=== PATIENT | female | born 1955 | race African-American/Black ===

== ENCOUNTER 2017-05-20 08:24 | Emergency (ER) | payer OTHER ==
[~2017-05-20] VITALS: Ht 170.2 cm; Wt 78.9 kg
[~2017-05-20 08:24] MED LIST: FERR325E14 PO; FURO-572 PO; ISOS10TA9 PO; METO25TA PO; OXYC40TE66 PO
[2017-05-20 08:37] VITALS: BP 95/54
--- NOTE | 2017-05-20 08:43 | NUR ---
PATIENT AMBULATED TO BED4
--- NOTE | 2017-05-20 08:50 | NUR ---
PATIENT PRESENTS TO ED WITH C/O RIGHT HIP PAIN S/P FALL YESTERDAY; PT STATES SHE LIFTED A BOX AND SCIATICA IS ACTING UP, ALSO C/O BLE EDEMA AND PAIN. HX HTN, DM . AAOX4, AMBULATE WITH WALKER; LUNGS CLEAR BL; HR EVEN AND REGULAR; PT DENIES ANY FEVER, CP, SOB, OR COUGH AT THIS TIME; DENIES N/V/D; SKIN IS PINK/WARM/DRY; PATIENT STATES PAIN OF 10/10 AT THIS TIME; TOOK OXYCODONE AT HOME FOR PAIN, VSS; PATIENT POSITIONED FOR COMFORT; HOB ELEVATED; BEDRAILS UP X2; BED DOWN. ER MD MADE AWARE OF PT STATUS.
[2017-05-20] MEDS: HYDROmorphone 1 MG/ML AMP IM ONE (09:15)
[2017-05-20 10:10] VITALS: BP 152/89
--- NOTE | 2017-05-20 10:10 | NUR ---
Patient discharged with v/s stable. Written and verbal after care instructions given and explained. Patient alert, oriented and verbalized understanding of instructions. Ambulatory with steady gait. All questions addressed prior to discharge. ID band removed. Patient advised to follow up with PMD. Rx of FIORICET given. Patient educated on indication of medication including possible reaction and side effects. Opportunity to ask questions provided and answered.
== END 2017-05-20 10:10 | disposition home or self-care (01) ==
LOC: MED 08:24
DX: M54.30 Sciatica, unspecified side (principal); E11.9 Type 2 diabetes mellitus without complications; I10 Essential (primary) hypertension; Z79.899 Other long term (current) drug therapy; Z88.8 Allergy status to other drugs, medicaments and biological substances
CPT/HCPCS: 96372; 99283; J1170

== ENCOUNTER 2017-09-08 09:48 | Emergency (ER) | payer OTHER ==
[~2017-09-08] VITALS: Ht 170.2 cm; Wt 81.6 kg
[2017-09-08 10:00] VITALS: BP 148/82
--- NOTE | 2017-09-08 10:05 | NUR ---
PT AMBULATES TO BED 7
--- NOTE | 2017-09-08 10:15 | NUR ---
62 yo f bib self w/ c/o leg pain related to sciatica. The pain is exacerbated x 1 day (beginning yesterday morning) over her entire right side of the body. Pt denies any numbness/tingling. Denies n/v/d/fever/chills. Pt a&o x 4. GCS 15. CMS intact. RR even and unlabored. lungs bilaterally clear. ER MD Garcia notified. pt needs met. safety precautions in place .will continue to monitor. Hx: Neuropathy, HTN, Anemia, DM, RA, sciatica, 5 broken vertebrae
--- NOTE | 2017-09-08 10:16 | NUR ---
DR LYONS EVALUATING AT BEDSIDE
[2017-09-08] MEDS ORDERED: KETOROLAC 30 MG/ML VIAL IM ONE (10:20)
[2017-09-08 11:03] VITALS: BP 148/82
--- NOTE | 2017-09-08 11:03 | NUR ---
Patient discharged with v/s stable. Written and verbal after care instructions given and explained. Patient verbalized understanding. Ambulatory with steady gait. All questions addressed prior to discharge. Advised to follow up with PMD.
== END 2017-09-08 11:03 | disposition home or self-care (01) ==
LOC: MED 09:48
DX: M54.41 Lumbago with sciatica, right side (principal); G89.29 Other chronic pain; G62.9 Polyneuropathy, unspecified; E11.9 Type 2 diabetes mellitus without complications; I10 Essential (primary) hypertension; Z79.899 Other long term (current) drug therapy; Z88.8 Allergy status to other drugs, medicaments and biological substances
CPT/HCPCS: 96372; 99283; J1885

== ENCOUNTER 2017-09-15 16:17 | Emergency (ER) | payer OTHER ==
[~2017-09-15] VITALS: Ht 170.2 cm; Wt 84.8 kg
[2017-09-15 16:23] VITALS: BP 106/59
[2017-09-15] MEDS ORDERED: diphenhydrAMINE 50 MG/ML VIAL IM ONE (20:15)
[2017-09-15] MEDS ORDERED: MORPHINE SULFATE 4 MG/ML SYR IM ONE (20:15)
[2017-09-15 20:51] VITALS: BP 136/84
== END 2017-09-15 20:51 | disposition home or self-care (01) ==
LOC: MED 16:17
DX: M25.551 Pain in right hip (principal); M54.5 Low back pain; M79.89 Other specified soft tissue disorders
CPT/HCPCS: 72100; 73502; 82948; 93971; 96372; 99284; J1200; J2270; Q0092

== ENCOUNTER 2017-10-31 12:27 | Emergency (ER) | payer OTHER ==
[~2017-10-31] VITALS: Ht 170.2 cm; Wt 81.6 kg
--- NOTE | 2017-10-31 12:36 | NUR ---
pt ambulated to er bed 11
[2017-10-31 12:38] VITALS: BP 142/67
--- NOTE | 2017-10-31 12:38 | NUR ---
c/o left ankle pain x 5 days---pitting edema left tib/fib ;+2 pedal pulse <3 sec cap refill denies injury, ambulatory with slow steady gait adds chronic knee and ankle pain--- right knee pain exacerbated 2 days ago---. DENIES N/V/D; SKIN IS WARM/DRY; AAOX4 WITH EVEN AND SLOW STEADY GAIT; LUNGS CLEAR BL; HR EVEN AND REGULAR; PT DENIES ANY FEVER, CP, SOB, OR COUGH AT THIS TIME; PATIENT STATES PAIN OF 10/10 AT THIS TIME; VSS; PATIENT POSITIONED FOR COMFORT; HOB ELEVATED; BEDRAILS UP X2; BED DOWN. ER MD MADE AWARE OF PT STATUS.
[2017-10-31] MEDS ORDERED: MORPHINE SULFATE 2 MG/ML SYR IM ONE (12:50)
[2017-10-31] MEDS ORDERED: DEXAMETHASONE 10 MG/ML VIAL IM ONE (12:50)
[2017-10-31 13:54] VITALS: BP 140/62
--- NOTE | 2017-10-31 13:54 | NUR ---
Patient discharged with v/s stable. Written and verbal after care instructions given and explained. Patient alert, oriented and verbalized understanding of instructions. Ambulatory with steady gait. All questions addressed prior to discharge. ID band removed. Patient advised to follow up with PMD. Rx of prednisone,fioricet given. Patient educated on indication of medication including possible reaction and side effects. Opportunity to ask questions provided and answered.
== END 2017-10-31 13:54 | disposition home or self-care (01) ==
LOC: MED 12:27
DX: S92.355D Nondisplaced fracture of fifth metatarsal bone, left foot, subsequent encounter for fracture with routine healing (principal); M10.072 Idiopathic gout, left ankle and foot; E11.9 Type 2 diabetes mellitus without complications; I10 Essential (primary) hypertension; Z88.6 Allergy status to analgesic agent; Z79.899 Other long term (current) drug therapy; W18.30XD Fall on same level, unspecified, subsequent encounter
CPT/HCPCS: 73610; 96372; 99284; J1100; J2270

== ENCOUNTER 2017-12-16 12:23 | Emergency (ER) | payer OTHER ==
[~2017-12-16] VITALS: Ht 170.2 cm; Wt 80.3 kg
[2017-12-16 12:28] VITALS: BP 131/70
--- NOTE | 2017-12-16 12:45 | NUR ---
PT. CAME INTO THE ED DUE TO ABD PAIN X 2 DAYS. PT STATES " I HAVE BEEN HAVING PAIN IN MY STOMACH ALSO WITH SOME DIAHRRHEA AND I DO FEEL A LITTLE DIZZY WELL". PT DENIES ANY N/V. DOES COMPLAIN OF DIAHRRHEA X 2 DAYS. DIZZYNESS UPON GETTING UP. SKIN WARM AND DRY. DENIES ANY BLOOD IN DIARRHEA. ABD SOFT AND ROUND AND TENDER IN LOWER ABD UPON PALPATION. ER MD NOTIFIED. WILL CONTINUE TO MONITOR. SAFETY PRECAUTIONS IMPLEMENTED.
[2017-12-16 12:55] LABS: BASOPHILS # (AUTO) 0.1 K/uL (0.00-0.22); BASOPHILS % (AUTO) 2.5 % (0.0-2.0); EOSINOPHILS # (AUTO) 0.1 K/uL (0-0.4); EOSINOPHILS % (AUTO) 1.2 % (0.0-4.0); HEMATOCRIT 38.6 % (36-48); HEMOGLOBIN 12.1 g/dL (12.0-16.0); LYMPHOCYTES # (AUTO) 1.8 K/uL (2.5-16.5); MEAN CORPUSCULAR HEMOGLOBIN 28 pg (27-31); MEAN CORPUSCULAR HGB CONC 32 g/dL (33-37); MEAN CORPUSCULAR VOLUME 87.8 fL (80-94); MONOCYTES # (AUTO) 0.4 K/uL (0.8-1.0); MONOCYTES % (AUTO) 8.6 % (1.7-9.3); NEUTROPHILS # (AUTO) 1.9 K/uL (1.8-7.7); NEUTROPHILS % (AUTO) 45.7 % (42.2-75.2); PLATELET COUNT (AUTO) 230 K/uL (140-450); RED BLOOD CELL COUNT(AUTO) 4.39 MIL/uL (4.20-5.40); RED CELL DISTRIBUTION WIDTH 16.3 % (11.6-13.7); WHITE BLOOD COUNT (AUTO) 4.2 K/uL (4.8-10.8)
[2017-12-16 13:02] LABS: ANION GAP 10.8 (8-16); CARBON DIOXIDE 27.3 mmol/L (21-32); CREATININE 1.3 mg/dL (0.6-1.3); POTASSIUM 4.1 mmol/L (3.5-5.1)
--- NOTE | 2017-12-16 13:05 | NUR ---
PT. TAKEN TO CT VIA JANETRROLA BY MANAGER ASSESSMENT
[2017-12-16 13:08] LABS: ALBUMIN 3.4 g/dL (3.4-5.0); TOTAL BILIRUBIN 0.3 mg/dL (0.0-1.0)
--- NOTE | 2017-12-16 13:49 | NUR ---
PT. RESTING IN BED, RR EVEN AND UNLABORED, VSS. BED IN LOWEST POSITION. WILL CONTINUE TO MONITOR.
[2017-12-16 14:06] LABS: APPEARANCE,URINE CLEAR (CLEAR); BILIRUBIN,URINE NEGATIVE (NEGATIVE); BLOOD, URINE NEGATIVE (NEGATIVE); COLOR,URINE YELLOW (YELLOW); LEUKOCYTE ESTERASE ,URINE NEGATIVE (NEGATIVE); NITRITE, URINE NEGATIVE (NEGATIVE); PH,URINE 5.5 (5.0-9.0); UGLUCOSE NEGATIVE (NEGATIVE)
--- NOTE | 2017-12-16 14:35 | NUR ---
pt. resting comfortably in bed, rr even and unlabored. bed in lowest position. vss
[2017-12-16 14:44] VITALS: BP 133/74
--- NOTE | 2017-12-16 14:44 | NUR ---
Patient discharged with v/s stable. Written and verbal after care instructions given and explained. Patient alert, oriented and verbalized understanding of instructions. Ambulatory with steady gait. All questions addressed prior to discharge. ID band removed. Patient advised to follow up with PMD. Rx of LOMOTIL, BENTYL, CIPRO given. Patient educated on indication of medication including possible reaction and side effects. Opportunity to ask questions provided and answered.
== END 2017-12-16 14:44 | disposition home or self-care (01) ==
LOC: MED 12:23
DX: R10.9 Unspecified abdominal pain (principal); R19.7 Diarrhea, unspecified; J02.9 Acute pharyngitis, unspecified; Z88.8 Allergy status to other drugs, medicaments and biological substances; E11.9 Type 2 diabetes mellitus without complications; I10 Essential (primary) hypertension; Z79.899 Other long term (current) drug therapy
CPT/HCPCS: 36415; 80053; 81003; 82948; 85025; 99285

== ENCOUNTER 2018-01-21 18:35 | Emergency (ER) | payer OTHER ==
[~2018-01-21] VITALS: Ht 170.2 cm; Wt 80.3 kg
[2018-01-21 18:50] VITALS: BP_SYST 128; BP_SYST 148; BP_DIAS 80
--- NOTE | 2018-01-21 18:54 | NUR ---
PT BROUGHT TO ED BED 12
--- NOTE | 2018-01-21 18:55 | NUR ---
PT C/O COUGH X 3 DAYS AND LEG PAIN CHRONIC ARTHRITIS. ALSO C/O SCIATICA PAIN. 01/13 ACHING. NO OTHER COMPLAINTS. GCS 15, VSS. HX---HTN, DM, ARTHRITIS, ASTHMA MEDS---METFORMIN, ISOSORBID, METOPROLOL, OXYCODONE, ALBUTEROL
--- NOTE | 2018-01-21 19:05 | NUR ---
RECIEVED REPORT FROM WASHINGTON ALLEN.
[2018-01-21] MEDS ORDERED: HYDROcodone/APAP 10/325 MG 1 TAB TAB PO ONE (20:20)
[2018-01-21 20:44] LABS: BASOPHILS % (AUTO) 1.2 % (0.0-2.0); EOSINOPHILS % (AUTO) 0.3 % (0.0-4.0); HEMATOCRIT 37.4 % (36-48); HEMOGLOBIN 11.9 g/dL (12.0-16.0); LYMPHOCYTES # (AUTO) 1.3 K/uL (2.5-16.5); LYMPHOCYTES % (AUTO) 36.7 % (20.5-51.1); MEAN CORPUSCULAR HEMOGLOBIN 28 pg (27-31); MEAN CORPUSCULAR HGB CONC 32 g/dL (33-37); MEAN CORPUSCULAR VOLUME 87.7 fL (80-94); MONOCYTES # (AUTO) 0.5 K/uL (0.8-1.0); MONOCYTES % (AUTO) 14.5 % (1.7-9.3); NEUTROPHILS # (AUTO) 1.7 K/uL (1.8-7.7); NEUTROPHILS % (AUTO) 47.3 % (42.2-75.2); PLATELET COUNT (AUTO) 205 K/uL (140-450); RED BLOOD CELL COUNT(AUTO) 4.26 MIL/uL (4.20-5.40); RED CELL DISTRIBUTION WIDTH 15.5 % (11.6-13.7); WHITE BLOOD COUNT (AUTO) 3.6 K/uL (4.8-10.8)
[2018-01-21 21:04] LABS: ANION GAP 11.6 (8-16); CARBON DIOXIDE 29.3 mmol/L (21-32); CREATININE 1.7 mg/dL (0.6-1.3); POTASSIUM 3.9 mmol/L (3.5-5.1)
[2018-01-21 21:11] LABS: ALBUMIN 3.3 g/dL (3.4-5.0); TOTAL BILIRUBIN 0.3 mg/dL (0.0-1.0)
--- NOTE | 2018-01-21 21:30 | NUR ---
AWAITING DC ORDERS FROM DR HOYOS.
[2018-01-21 22:16] VITALS: BP 148/80
--- NOTE | 2018-01-21 22:16 | NUR ---
Patient discharged with v/s stable. Written and verbal after care instructions given and explained. Patient alert, oriented and verbalized understanding of instructions. Ambulatory with steady gait. All questions addressed prior to discharge. ID band removed. Patient advised to follow up with PMD. Rx of [place] given. Patient educated on indication of medication including possible reaction and side effects. Opportunity to ask questions provided and answered.
[2018-01-21 23:35] LABS: APPEARANCE,URINE CLEAR (CLEAR); COLOR,URINE YELLOW (YELLOW)
[2018-01-21 23:36] LABS: BILIRUBIN,URINE NEGATIVE (NEGATIVE); BLOOD, URINE NEGATIVE (NEGATIVE); LEUKOCYTE ESTERASE ,URINE NEGATIVE (NEGATIVE); NITRITE, URINE NEGATIVE (NEGATIVE); UGLUCOSE NEGATIVE (NEGATIVE)
== END 2018-01-21 22:16 | disposition home or self-care (01) ==
LOC: MED 18:35
DX: I87.2 Venous insufficiency (chronic) (peripheral) (principal); I10 Essential (primary) hypertension; E11.40 Type 2 diabetes mellitus with diabetic neuropathy, unspecified; J45.909 Unspecified asthma, uncomplicated; Z88.6 Allergy status to analgesic agent; Z79.899 Other long term (current) drug therapy
CPT/HCPCS: 36415; 80053; 81003; 83880; 85025; 93971; 99285; Q0092

== ENCOUNTER 2018-02-16 13:38 | Emergency (ER) | payer OTHER ==
[~2018-02-16] VITALS: Ht 170.2 cm; Wt 81.6 kg
[2018-02-16 14:01] VITALS: BP 104/65
--- NOTE | 2018-02-16 14:26 | NUR ---
BIB SELF C/O LOWER BACK PAIN, RIGHTLEG PAIN X 3 DAYS S/P FALL. DENIES LOC. HX OF HTN. PT REPORTED DIARRHEA X 5 EPISDES.SKIN IS PINK/WARM/DRY; AAOX4 WITH EVEN AND STEADY GAIT; LUNGS CLEAR BL;PATIENT STATES PAIN OF 10/10 AT THIS TIME; VSS; PATIENT POSITIONED FOR COMFORT; HOB ELEVATED; BEDRAILS UP X2; BED DOWN. ER MD MADE AWARE OF PT STATUS.
[2018-02-16] MEDS ORDERED: NACL 0.9% 1,000 ML IV ONE (14:50)
[2018-02-16 15:15] LABS: BASOPHILS % (AUTO) 1.1 % (0.0-2.0); EOSINOPHILS % (AUTO) 0.3 % (0.0-4.0); HEMATOCRIT 32.1 % (36-48); HEMOGLOBIN 10.2 g/dL (12.0-16.0); LYMPHOCYTES % (AUTO) 30.7 % (20.5-51.1); MEAN CORPUSCULAR HEMOGLOBIN 28 pg (27-31); MEAN CORPUSCULAR HGB CONC 32 g/dL (33-37); MEAN CORPUSCULAR VOLUME 88.2 fL (80-94); MONOCYTES # (AUTO) 0.6 K/uL (0.8-1.0); MONOCYTES % (AUTO) 20.3 % (1.7-9.3); NEUTROPHILS # (AUTO) 1.5 K/uL (1.8-7.7); NEUTROPHILS % (AUTO) 47.6 % (42.2-75.2); PLATELET COUNT (AUTO) 176 K/uL (140-450); RED BLOOD CELL COUNT(AUTO) 3.64 MIL/uL (4.20-5.40); WHITE BLOOD COUNT (AUTO) 3.1 K/uL (4.8-10.8)
[2018-02-16 15:24] LABS: CARBON DIOXIDE 28.5 mmol/L (21-32); CREATININE 1.7 mg/dL (0.6-1.3); POTASSIUM 4.5 mmol/L (3.5-5.1)
[2018-02-16 15:31] LABS: TOTAL BILIRUBIN 0.3 mg/dL (0.0-1.0)
[2018-02-16] MEDS ORDERED: fentaNYL 0.05 MG/ML VIAL IVP ONE (16:35)
--- NOTE | 2018-02-16 17:04 | NUR ---
Patient discharged with v/s stable. Written and verbal after care instructions given and explained. Patient alert, oriented and verbalized understanding of instructions. Ambulatory with steady gait. All questions addressed prior to discharge. ID band removed. Patient advised to follow up with PMD. Rx of TRAMADOL/PROMETHAZINE given. Patient educated on indication of medication including possible reaction and side effects. Opportunity to ask questions provided and answered.
[2018-02-16 17:05] VITALS: BP 134/86
== END 2018-02-16 17:04 | disposition home or self-care (01) ==
LOC: MED 13:38
DX: J06.9 Acute upper respiratory infection, unspecified (principal); M54.41 Lumbago with sciatica, right side; J45.909 Unspecified asthma, uncomplicated; E11.9 Type 2 diabetes mellitus without complications; I10 Essential (primary) hypertension; Z88.6 Allergy status to analgesic agent; Z79.899 Other long term (current) drug therapy
CPT/HCPCS: 36415; 72131; 80053; 85025; 87081; 87804; 96361; 96374; 99285; J3010; J7030

== ENCOUNTER 2018-03-02 12:07 | Emergency (ER) | payer OTHER ==
[~2018-03-02] VITALS: Ht 170.2 cm; Wt 77.1 kg
[2018-03-02 12:16] VITALS: BP 145/77
[2018-03-02] MEDS: ONDANSETRON 4 MG/2 ML VIAL IVP ONE (13:10)
[2018-03-02] MEDS: NACL 0.9% 1,000 ML IV ONE (13:12)
[2018-03-02 13:31] LABS: HEMATOCRIT 38.9 % (36-48); HEMOGLOBIN 12.2 g/dL (12.0-16.0); LYMPHOCYTES % (AUTO) 28.5 % (20.5-51.1); MEAN CORPUSCULAR HEMOGLOBIN 28 pg (27-31); MEAN CORPUSCULAR HGB CONC 32 g/dL (33-37); MEAN CORPUSCULAR VOLUME 88.4 fL (80-94); MONOCYTES # (AUTO) 0.3 K/uL (0.8-1.0); MONOCYTES % (AUTO) 8.4 % (1.7-9.3); NEUTROPHILS # (AUTO) 2.1 K/uL (1.8-7.7); NEUTROPHILS % (AUTO) 62.1 % (42.2-75.2); PLATELET COUNT (AUTO) 243 K/uL (140-450); RED CELL DISTRIBUTION WIDTH 16.6 % (11.6-13.7); WHITE BLOOD COUNT (AUTO) 3.4 K/uL (4.8-10.8)
[2018-03-02 14:09] LABS: ANION GAP 13.7 (8-16); CARBON DIOXIDE 28.4 mmol/L (21-32); CREATININE 1.8 mg/dL (0.6-1.3); POTASSIUM 4.1 mmol/L (3.5-5.1)
[2018-03-02 14:14] LABS: ALBUMIN 4.1 g/dL (3.4-5.0); TOTAL BILIRUBIN 0.5 mg/dL (0.0-1.0)
[2018-03-02] MEDS: PANTOPRAZOLE 40 MG INJ VIAL IVP ONE (15:08)
[2018-03-02 15:27] VITALS: BP 159/81
== END 2018-03-02 15:27 | disposition home or self-care (01) ==
LOC: MED 12:07
DX: B34.9 Viral infection, unspecified (principal); R11.10 Vomiting, unspecified; R42 Dizziness and giddiness; J45.909 Unspecified asthma, uncomplicated; E11.9 Type 2 diabetes mellitus without complications; I10 Essential (primary) hypertension; Z90.49 Acquired absence of other specified parts of digestive tract; Z88.8 Allergy status to other drugs, medicaments and biological substances
CPT/HCPCS: 36415; 71045; 80053; 81002; 83605; 85025; 87040; 93005; 96361; 96374; 96375; 99284; C9113; J2405; Q0092

== ENCOUNTER 2018-03-02 21:06 | Emergency (ER) | payer OTHER ==
[~2018-03-02] VITALS: Ht 170.2 cm; Wt 74.8 kg
[2018-03-02 21:12] VITALS: BP 177/99
[2018-03-02 22:03] LABS: HEMATOCRIT 41.1 % (36-48); HEMOGLOBIN 12.7 g/dL (12.0-16.0); LYMPHOCYTES # (AUTO) 1.6 K/uL (2.5-16.5); LYMPHOCYTES % (AUTO) 32.4 % (20.5-51.1); MEAN CORPUSCULAR HEMOGLOBIN 28 pg (27-31); MEAN CORPUSCULAR HGB CONC 31 g/dL (33-37); MONOCYTES # (AUTO) 0.5 K/uL (0.8-1.0); MONOCYTES % (AUTO) 10.4 % (1.7-9.3); NEUTROPHILS # (AUTO) 2.8 K/uL (1.8-7.7); NEUTROPHILS % (AUTO) 56.2 % (42.2-75.2); PLATELET COUNT (AUTO) 259 K/uL (140-450); RED BLOOD CELL COUNT(AUTO) 4.62 MIL/uL (4.20-5.40); RED CELL DISTRIBUTION WIDTH 16.7 % (11.6-13.7)
[2018-03-02 22:28] LABS: APPEARANCE,URINE HAZY (CLEAR); BILIRUBIN,URINE NEGATIVE (NEGATIVE); BLOOD, URINE NEGATIVE (NEGATIVE); COLOR,URINE YELLOW (YELLOW); LEUKOCYTE ESTERASE ,URINE TRACE (NEGATIVE); NITRITE, URINE NEGATIVE (NEGATIVE); UGLUCOSE NEGATIVE (NEGATIVE)
[2018-03-02 22:30] LABS: ALBUMIN 4.2 g/dL (3.4-5.0); ANION GAP 15.7 (8-16); CARBON DIOXIDE 25.3 mmol/L (21-32); CREATININE 1.6 mg/dL (0.6-1.3); TOTAL BILIRUBIN 0.6 mg/dL (0.0-1.0)
[2018-03-02 22:55] LABS: RBC,URINE 0-5 (RARE) /HPF (0-5)
[2018-03-03] MEDS ORDERED: NACL 0.9% 1,000 ML IV ONE (01:50)
[2018-03-03] MEDS ORDERED: PROMETHAZINE 25 MG/ML VIAL IVP ONE (02:50)
[2018-03-03] MEDS ORDERED: MORPHINE SULFATE 4 MG/ML SYR IVP ONE (02:50)
[2018-03-03] MEDS ORDERED: ENALAPRILAT 2.5 MG/2 ML VIAL IVP ONE (02:50)
[2018-03-03 04:15] VITALS: BP 131/72
== END 2018-03-03 04:15 | disposition home or self-care (01) ==
LOC: MED 21:06
DX: N39.0 Urinary tract infection, site not specified (principal); J45.909 Unspecified asthma, uncomplicated; I10 Essential (primary) hypertension; E11.9 Type 2 diabetes mellitus without complications; Z98.84 Bariatric surgery status; Z90.89 Acquired absence of other organs; Z79.899 Other long term (current) drug therapy; Z88.6 Allergy status to analgesic agent
CPT/HCPCS: 36415; 80053; 81001; 83690; 85025; 87086; 87804; 96361; 96374; 96375; 99283; J2270; J2550; J3490; J7030

== ENCOUNTER 2018-09-05 20:42 | Inpatient (IN) | payer OTHER ==
[~2018-09-05] VITALS: Ht 170.2 cm; Wt 76.7 kg
[2018-09-05 20:50] VITALS: BP 114/63
--- NOTE | 2018-09-05 20:50 | NUR ---
TO BED # 12 VIA WHEELCHAIR , REPORT GIVEN TO LILIANE ALLEN.
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
[2018-09-05] MEDS ORDERED: NACL 0.9% 1,000 ML IV ONE (21:10)
--- NOTE | 2018-09-05 21:30 | NUR ---
Patient appears to be sleeping comfortably in bed. Vital Signs within normal limits. Respirations even and unlabored.
[2018-09-05 21:59] LABS: BASOPHILS # (AUTO) 0.1 K/uL (0.00-0.22); BASOPHILS % (AUTO) 1.2 % (0.0-2.0); EOSINOPHILS % (AUTO) 0.3 % (0.0-4.0); HEMATOCRIT 36.9 % (36-48); HEMOGLOBIN 11.7 g/dL (12.0-16.0); LYMPHOCYTES # (AUTO) 1.6 K/uL (2.5-16.5); LYMPHOCYTES % (AUTO) 35.7 % (20.5-51.1); MEAN CORPUSCULAR HEMOGLOBIN 28 pg (27-31); MEAN CORPUSCULAR HGB CONC 32 g/dL (33-37); MEAN CORPUSCULAR VOLUME 89.2 fL (80-94); MONOCYTES # (AUTO) 0.4 K/uL (0.8-1.0); MONOCYTES % (AUTO) 8.1 % (1.7-9.3); NEUTROPHILS # (AUTO) 2.4 K/uL (1.8-7.7); NEUTROPHILS % (AUTO) 54.7 % (42.2-75.2); PLATELET COUNT (AUTO) 227 K/uL (140-450); RED BLOOD CELL COUNT(AUTO) 4.13 MIL/uL (4.20-5.40); RED CELL DISTRIBUTION WIDTH 16.1 % (11.6-13.7); WHITE BLOOD COUNT (AUTO) 4.4 K/uL (4.8-10.8)
--- NOTE | 2018-09-05 22:27 | NUR ---
XRAY AT BEDSIDE.
[2018-09-05 22:32] LABS: ANION GAP 19.1 (8-16); CREATININE 2.8 mg/dL (0.6-1.3); POTASSIUM 5.1 mmol/L (3.5-5.1); TOTAL BILIRUBIN 0.4 mg/dL (0.0-1.0)
[2018-09-05 22:37] LABS: CREATINE KINASE MB 3.8 ng/mL (0-3.6)
--- NOTE | 2018-09-05 22:50 | NUR ---
PT TAKEN TO CT VIA FADY. CONTRAST CANCELLED PER DR. PERLA.
--- NOTE | 2018-09-05 23:52 | NUR ---
Pt w/c assisted to bathroom to provide UA.
--- NOTE | 2018-09-05 23:58 | NUR ---
Pt w/c assisted back into bed. IV fluids infusing. Pt tolerating well. Pt requesting for food. Dr. Cobian made aware.
--- NOTE | 2018-09-06 00:30 | NUR ---
PT REQUESTING FOOD. SANDWICH REQUESTED.
--- NOTE | 2018-09-06 00:40 | NUR ---
Dr. Cobian evaluating patient at bedside.
[2018-09-06 00:44] LABS: BARBITURATE, URINE NEG. ng/ml (NEG <=200); BENZODIAZEPINE, URINE NEG. ng/mL (NEG <=200); CANNABINOID, URINE NEG. ng/mL (NEG <=50); COCAINE, URINE NEG. ng/mL (NEG <=300); OPIATE, URINE POS. ng/mL (NEG <=2000); PHENCYCLIDINE SCREEN,URINE NEG. ng/mL (NEG <=25)
--- NOTE | 2018-09-06 01:00 | NUR ---
PT EATING AT BEDSIDE. VSS. BREATHING EVEN, UNLABORED.
[2018-09-06] MEDS ORDERED: ONDANSETRON 4 MG/2 ML VIAL IVP ONE (01:15)
[2018-09-06] MEDS ORDERED: MORPHINE SULFATE 4 MG/ML SYR IVP ONE (01:15)
--- NOTE | 2018-09-06 01:15 | NUR ---
RECEIVED BEDSIDE REPORT FROM [facility] COMPUTER SCIENCE PROFESSORTIFFANY MOMIN. A/O X4. ESTONIAN SPEAKING. DISCUSSED PATIENT PLAN OF CARE. ABLE TO VERBALIZE UNDERSTANDING. ROOM AIR. NO SIGNS OF RESP DISTRESS OR DISCOMFORT. DENIES PAIN. IV SITE R HAND 20G INFUSING NS FORM ER. IV SITE PATENT AND INTACT. SKIN INTACT. SWELLING IN RIGHT AND LEFT LOWER EXTREMITIES. PITTING R +2, L +3. STANDARD PRECAUTIONS. FALL PRECAUTIONS IN PLACE DX SYNCOPE. YELLOW GOWN, SOCKS, SIGN AT DOOR, BED IN LOWEST POSITION, CALL LIGHT WITHIN REACH. WILL CONTINUE TO MONITOR.
--- NOTE | 2018-09-06 01:55 | NUR ---
Patient will be admitted to care of Dr. Chacon. Admited to Tele. Will go to room 111A. Belongings list completed. Report to MS TIFFANY.
--- NOTE | 2018-09-06 03:21 | NUR ---
PT IS SITTING UP IN BED. WAITING FOR ARRIVAL OF SON TO DROP OFF REPRODUCTIVE ENDOCRINOLOGIST. ORIENTED TO CALL LIGHT. WILL CONTINUE TO MONITOR.
[2018-09-06 04:00] VITALS: BP 106/54
--- NOTE | 2018-09-06 05:31 | NUR ---
PT IS SLEEPING IN BED NO SIGNS OF DISTRESS OR DISCOMFORT NOTED. WILL CONTINUE TO MONITOR.
[2018-09-06] MEDS ORDERED: ONDANSETRON 4 MG/2 ML VIAL IVP PRN (06:30)
[2018-09-06] MEDS ORDERED: ACETAMINOPHEN 325 MG TAB PO PRN (06:30)
--- NOTE | 2018-09-06 06:32 | NUR ---
LEFT MESSAGE TO VICKI AT 0400. UNABLE TO GET RESPONSE TO PLACE HIS TELEPHONE ORDERS DUE TO HIS NAME NOT BEING ON THE LIST. PLACED ORDERS FOR VICKI UNDER DR LEWIS.
--- NOTE | 2018-09-06 06:35 | NUR ---
GAVE THE REMAINING 700 CC NS BOLUS FROM ER.
--- NOTE | 2018-09-06 06:37 | NUR ---
WILL ENDORSE PT TO DAY SHIFT RN. PT IN STABLE CONDITION.
--- NOTE | 2018-09-06 07:25 | NUR ---
RECEIVED BEDSIDE REPORT FROM SERVICE DESK SPECIALIST RN DAVID. PT IS AAOX4. MALAY SPEAKING. DISCUSSED PATIENT PLAN OF CARE. ABLE TO VERBALIZE UNDERSTANDING. ROOM AIR. NO SIGNS OF RESP DISTRESS BUT PT DOES EXPRESS PAIN TO NECK AND BACK. WILL MEDICATE. IV SITE R HAND 20G INFUSING NS @ 100ML/HR. IV SITE PATENT AND INTACT. SKIN INTACT. SWELLING IN RIGHT AND LEFT LOWER EXTREMITIES. PITTING R +2, L +3. STANDARD PRECAUTIONS. FALL PRECAUTIONS IN PLACE FOR DX OF SYNCOPE. YELLOW GOWN, SOCKS, SIGN AT DOOR, BED IN LOWEST POSITION, CALL LIGHT WITHIN REACH. WILL CONTINUE TO MONITOR.
[2018-09-06 08:00] VITALS: BP 138/70
[2018-09-06 08:10] LABS: ANION GAP 14.2 (8-16); CARBON DIOXIDE 21.8 mmol/L (21-32); CREATININE 2.6 mg/dL (0.6-1.3)
--- NOTE | 2018-09-06 09:07 | NUR ---
PATIENT HAS BEEN SCREENED AND CATEGORIZED MODERATE NUTRITION RISK. PATIENT WILL BE SEEN WITHIN 3-5 DAYS OF ADMISSION. 09/08/18XAV[address]
--- NOTE | 2018-09-06 09:42 | NUR ---
ADMINISTERED MORNING MEDS TO PT. PT TOLERATED THEM WELL. ONLY FLUIDS WERE GIVEN. AWAITING TO ASK FOR ADDITIONAL ORDERS. PT STABLE AT THIS TIMER. NO PAIN REPORTED. WILL CONTINUE TO ROUND FREQUENTLY ON PT.
[2018-09-06] MEDS: NACL 0.45% 1,000 ML IV SCH ×2 (09:45→19:00)
--- NOTE | 2018-09-06 11:24 | NUR ---
PT RESTING IN BED TALKING ON CELL PHONE. NIO SIGNS OF PAIN OR DISTRESS NOTED. WILL CONTINUE TO ROUND FREQUENTLY ON PT. BED IN LOW POSITION, CALL LIGHT WITHIN REACH.
--- NOTE | 2018-09-06 13:44 | NUR ---
PT RESTING IN BED WATCHING TV. NO PAIN OR DISTRESS REPORTED. WILL ROUND FREQUENTLY ON PT.
[2018-09-06 14:30] VITALS: BP 133/61
--- NOTE | 2018-09-06 15:42 | NUR ---
PT HAVING ULTRASOUND. ALL NEEDS CURRENTLY MET. NO SIGNS OF PAIN OR DISTRESS. WILL ROUND FREQUENTLY ON PT.
--- NOTE | 2018-09-06 17:52 | NUR ---
PT FAMILY AT BEDSIDE. PT FAMILY ASKED IF PT'S GRANDCHILDREN AGED 7 AND 10 COULD COME IN TO VISIT PT. PER POLICY I TOLD THE FAMILY NO. FAMILY WALKED OVER TO DIRECTLY ASK CHARGE NURSE KIKA. KIKA VERBALIZED VISITING POLICY ONCE MORE BUT ORCHARD SPRAYER WAS PRESENT AND GAVE PERMISSION TO ALLOW GRANDCHILDREN TO VISIT.
--- NOTE | 2018-09-06 19:54 | NUR ---
RECIEVED PT AAOX4, NOT IN RESPIRATORY DISTRESS ,IV SITE INTACT AND PATENT ,IVF INFUSING WELL ,AMBULATORY ,SKIN INTACT ,BED IN LOW POSITION ,SIDERAILS UP X2 ,CALL LIGHT WITHIN REACH ,PLAN OF CARE DISCUSSED AND VERBALIZE UNDERSTANDING ,WILL CONTINUE TO MONITOR .
--- NOTE | 2018-09-06 19:54 | NUR ---
ENDORSED PT TO WHITE SIDEWALL TIRE BUFFER FOR CONTINUITY OF CARE. PT IN STABLE CONDITION AT THIS TIME.
[2018-09-06 20:00] VITALS: BP 142/64
[2018-09-06] MEDS: HYDROcodone/APAP 5/325 MG 1 TAB TAB PO PRN (20:51)
--- NOTE | 2018-09-06 20:51 | NUR ---
COMPLAINING OF PAIN.PAIN ASSESSMENT DONE. NARCO GIVEN P.O ORDERED . WILL CONTINUE TO MONITOR.CALL LIGHT WITHIN REACH
[2018-09-06] MEDS: METOPROLOL 25 MG TAB PO SCH (21:00)
--- NOTE | 2018-09-06 21:15 | NUR ---
RE ASSESSED PAIN - PT RESTING COMFORTABLY ON BED. NO FURTHER COMPLAIN AT THIS TIME. CALL LIGHT WITHIN REACH
[2018-09-07] VITALS (8 sets, daily range): BP systolic 104–134; BP diastolic 44–92
--- NOTE | 2018-09-07 | NUR ---
V/S TAKEN ,NO DISCOMFORT NOTED AT THIS TIME .IVF INFUSING WELL .CALL LIGHT WITHIN REACH
--- NOTE | 2018-09-07 02:00 | NUR ---
PATIENT SLEEPING .RR 20CPM
--- NOTE | 2018-09-07 04:20 | NUR ---
PT VOIDED ,URINE SPECIMEN COLLECTED AND SENT TO LAB ORDERED .
[2018-09-07] MEDS: HYDROcodone/APAP 5/325 MG 1 TAB TAB PO PRN (04:37)
--- NOTE | 2018-09-07 04:37 | NUR ---
COMPLAINING OF PAIN .PAIN ASSESSMENT DONE - NARCO P.O GIVEN ORDERED. V/S STABLE NOT IN RESPIRATORY DISTRESS . WILL CONTINUE TO MONITOR.
[2018-09-07] MEDS: NACL 0.45% 1,000 ML IV SCH ×2 (04:55→15:00)
[2018-09-07 06:14] LABS: BILIRUBIN,URINE NEGATIVE (NEGATIVE); BLOOD, URINE NEGATIVE (NEGATIVE); COLOR,URINE YELLOW (YELLOW); LEUKOCYTE ESTERASE ,URINE NEGATIVE (NEGATIVE); NITRITE, URINE NEGATIVE (NEGATIVE); PH,URINE 5.5 (5.0-9.0); UGLUCOSE NEGATIVE (NEGATIVE)
[2018-09-07 06:44] LABS: APPEARANCE,URINE SLIGHTLY HAZY (CLEAR)
[2018-09-07 06:45] LABS: RBC,URINE NONE SEEN /HPF (0-5); WBC,URINE 0-5 /HPF (0-5)
--- NOTE | 2018-09-07 07:23 | NUR ---
RECEIVED BED SIDE REPORT FROM RETAIL STOCK CLERK RN. PT IN STABLE CONDITION, RESTING COMFORTABLY IN BED PLAYING ON HER PHONE. A/O X4, SKIN INTACT, R HAND 22G RUNNING D5 1/2NS AT 100CC/HR. CANE AT BEDSIDE. WILL CONTINUE TO MONITOR
--- NOTE | 2018-09-07 07:30 | NUR ---
ENDORSED PT IN STABLE CONDITION TO AM NURSE .
[2018-09-07 07:58] LABS: BASOPHILS % (AUTO) 0.9 % (0.0-2.0); EOSINOPHILS % (AUTO) 0.5 % (0.0-4.0); HEMATOCRIT 30.9 % (36-48); LYMPHOCYTES # (AUTO) 1.8 K/uL (2.5-16.5); LYMPHOCYTES % (AUTO) 43.2 % (20.5-51.1); MEAN CORPUSCULAR HEMOGLOBIN 29 pg (27-31); MEAN CORPUSCULAR HGB CONC 32 g/dL (33-37); MEAN CORPUSCULAR VOLUME 88.8 fL (80-94); MONOCYTES # (AUTO) 0.4 K/uL (0.8-1.0); MONOCYTES % (AUTO) 10.6 % (1.7-9.3); NEUTROPHILS # (AUTO) 1.8 K/uL (1.8-7.7); NEUTROPHILS % (AUTO) 44.8 % (42.2-75.2); PLATELET COUNT (AUTO) 170 K/uL (140-450); RED BLOOD CELL COUNT(AUTO) 3.48 MIL/uL (4.20-5.40); RED CELL DISTRIBUTION WIDTH 15.5 % (11.6-13.7); WHITE BLOOD COUNT (AUTO) 4.1 K/uL (4.8-10.8)
[2018-09-07 08:03] LABS: MAGNESIUM 1.9 mg/dL (1.8-2.4); PHOSPHORUS 4.5 mg/dL (2.5-4.9)
[2018-09-07 08:21] LABS: ANION GAP 15.4 (8-16); CARBON DIOXIDE 21.6 mmol/L (21-32); CREATININE 2.3 mg/dL (0.6-1.3)
[2018-09-07 08:35] LABS: CKMB RELATIVE INDEX 0.9 (0.0-2.5); CREATINE KINASE MB 3.9 ng/mL (0-3.6)
[2018-09-07] MEDS: FERROUS SULFATE 325 MG TABEC PO SCH (08:50)
[2018-09-07] MEDS: ISOSORBIDE DINITRATE 10 MG TAB PO SCH (08:50)
[2018-09-07] MEDS: METOPROLOL 25 MG TAB PO SCH (09:00)
--- NOTE | 2018-09-07 09:40 | NUR ---
PT COMPLAINED OF 10/10 RIGHT SHOULDER PAIN. PT STAED THAT NORCO 5MG DID NOT WORK. PAGED AND ORDERED NORCO 10MG/325G Q4H AND AN XRAY FOR THE RIGHT SHOULDER.
[2018-09-07] MEDS ORDERED: HYDROcodone/APAP 5/325 MG 1 TAB TAB PO PRN (10:00)
--- NOTE | 2018-09-07 10:00 | NUR ---
PT CAME TO SEE AND EVALUATE PT. WILL CONTINUE TO MONITOR
[2018-09-07] MEDS ORDERED: HYDROcodone/APAP 10/325 MG 1 TAB TAB PO PRN (10:25)
--- NOTE | 2018-09-07 17:00 | NUR ---
CAME TO SEE PT. PT STILL COMPLAINS OF SEVERE RIGHT SHOULDER PAIN. ADDED MORPHINE 4MG PRN. ECHO ALSO ORDERED. METOPROLOL WAS DC. ORDERED TOTAL CK AND TROPONIN FOR LABS
[2018-09-07] MEDS: MORPHINE SULFATE 4 MG/ML SYR IVP PRN (18:51)
--- NOTE | 2018-09-07 18:59 | NUR ---
GAVE PT MORPHINE 4MG IVP FOR 7/10 ACHING R SHOULDER PAIN THAT RADIATES TO THE BACK. PT WANTED TO WAIT UNTIL AFTER DINNER TO GET MORPHINE. WILL CONTINUE TO MONITOR
--- NOTE | 2018-09-07 19:30 | NUR ---
RECEIVED TELEMETRY PATIENT FROM DAY SHIFT NURSE FOR CONTINUITY OF CARE. PATIENT SITTING IN BED, AWAKE, ALERT, ORIENTED. PATIENT ON ROOM AIR, WITH RIGHT HAND 22 GA IV RUNNING WITH 0.45% NORMAL SALINE AT 100ML/HR. PATIENT HAS NO COMPLAINS OF PAIN AT THIS TIME. BED IS IN LOW POSITION, CALL LIGHT WITHIN REACH, INSTRUCTED PATIENT TO CALL FOR HELP WHEN NEEDED TO GO THE BATHROOM. WILL MONITOR PATIENT AND WILL DO FREQUENT ROUNDINGS.
--- NOTE | 2018-09-07 19:41 | NUR ---
ENDORSED PT TO ED TECH RN. PT IN STABLE CONDITION.
--- NOTE | 2018-09-07 22:00 | NUR ---
PATIENT LYING DOWN IN BED, APPEARED TO BE SLEEPING. BED IN LOW POSITION, SIDE RAILS ARE UP, CALL LIGHT WITHIN REACH. WILL CONTINUE TO MONITOR PATIENT.
[2018-09-08] VITALS: BP 103/52
--- NOTE | 2018-09-08 | NUR ---
PATIENT IS LYING DOWN, APPEARED TO BE SLEEPING. VITAL SIGNS ARE CHECKED. INSTRUCTED PATIENT TO USE CALL LIGHT WHEN NEEDED. BED IN LOW POSITION. SIDE RAILS ARE UP. WILL CONTINUE TO MONITOR PATIENT.
[2018-09-08] MEDS: NACL 0.45% 1,000 ML IV SCH ×2 (01:00→04:36)
--- NOTE | 2018-09-08 02:15 | NUR ---
PATIENT APPEARED TO BE SLEEPING. NO VISIBLE SIGNS OF DISTRESS. WILL CONTINUE TO MONITOR PATIENT.
[2018-09-08 04:00] VITALS: BP 120/60
--- NOTE | 2018-09-08 04:00 | NUR ---
PATIENT APPEARED TO BE ASLEEP. CHECKED VITAL SIGNS, AND PATIENT COMPLAINS OF PAIN ON RIGHT SHOULDER. ASSISTED PATIENT TO BATHROOM, VOIDED X 1. WILL ADMINISTER PAIN MEDICATION ORDERED.
[2018-09-08] MEDS: MORPHINE SULFATE 4 MG/ML SYR IVP PRN ×2 (04:37→11:09)
--- NOTE | 2018-09-08 04:37 | NUR ---
ADMINISTERED MORPHINE FOR PAIN AND HELPED RE-POSITION PATIENT. GAVE WASHCLOTH TO WIPE FACE. GAVE WARM BLANKET FOR SHOULDER PAIN RELIEF. REMINDED PATIENT TO USE CALL LIGHT WHEN NEEDED HELP AMBULATING TO THE BATHROOM. BED IN LOW POSITION. SIDE RAILS ARE UP. WILL CONTINUE TO MONITOR PATIENT.
--- NOTE | 2018-09-08 07:15 | NUR ---
ENDORSED PATIENT TO DAY SHIFT NURSE FOR CONTINUITY OF CARE. PATIENT IS ASLEEP WITH NO SIGNS OF DISTRESS, AND STABLE. BED IN LOW POSITION, SIDE RAILS ARE UP, AND CALL LIGHT WITHIN REACH.
--- NOTE | 2018-09-08 07:20 | NUR ---
RECEIVED BED SIDE REPORT FROM CARDIAC CARE UNIT NURSE RN. PT SLEEPING COMFORTABLY ON RA, IN NO RESPIRATORY DISTRESS, WILL CONTINUE TO MONITOR
[2018-09-08 07:41] LABS: BASOPHILS % (AUTO) 0.6 % (0.0-2.0); EOSINOPHILS % (AUTO) 0.8 % (0.0-4.0); HEMATOCRIT 27.8 % (36-48); HEMOGLOBIN 9.2 g/dL (12.0-16.0); LYMPHOCYTES # (AUTO) 1.7 K/uL (2.5-16.5); LYMPHOCYTES % (AUTO) 51.5 % (20.5-51.1); MEAN CORPUSCULAR HEMOGLOBIN 29 pg (27-31); MEAN CORPUSCULAR HGB CONC 33 g/dL (33-37); MEAN CORPUSCULAR VOLUME 88.6 fL (80-94); MONOCYTES # (AUTO) 0.4 K/uL (0.8-1.0); MONOCYTES % (AUTO) 12.6 % (1.7-9.3); NEUTROPHILS # (AUTO) 1.2 K/uL (1.8-7.7); NEUTROPHILS % (AUTO) 34.5 % (42.2-75.2); PLATELET COUNT (AUTO) 157 K/uL (140-450); RED BLOOD CELL COUNT(AUTO) 3.14 MIL/uL (4.20-5.40); RED CELL DISTRIBUTION WIDTH 14.8 % (11.6-13.7); WHITE BLOOD COUNT (AUTO) 3.4 K/uL (4.8-10.8)
[2018-09-08 07:50] LABS: CARBON DIOXIDE 19.3 mmol/L (21-32); CREATININE 1.9 mg/dL (0.6-1.3); POTASSIUM 4.3 mmol/L (3.5-5.1)
[2018-09-08 08:00] VITALS: BP 118/66
[2018-09-08 08:06] LABS: MAGNESIUM 1.8 mg/dL (1.8-2.4)
[2018-09-08] MEDS: FERROUS SULFATE 325 MG TABEC PO SCH (08:43)
[2018-09-08] MEDS: ISOSORBIDE DINITRATE 10 MG TAB PO SCH (08:44)
--- NOTE | 2018-09-08 09:00 | NUR ---
PT TOOK A SHOWER. IV ON SALINE LOCK, PREPRESS OPERATOR HELPED PT TO SHOWER. SHOWER ORDER ALREADY IN PLACE
--- NOTE | 2018-09-08 11:09 | NUR ---
PT COMPLAINS OF PRESSURE LIKE CHEST PAIN 7/10 NON-RADIATING. PT STATES PAIN FEELS LIKE SOMETHING FELL ON HER. TROPONIN LEVELS NORMAL, CK LEVELS WENT DOWN TO NORMAL AND KIDNEY FUNCTIONS ARE STILL HIGH BUT IMPROVING. WILL LET MD KNOW WHEN HE SEES HER.
[2018-09-08 12:00] VITALS: BP 146/73
--- NOTE | 2018-09-08 13:11 | NUR ---
PT STATES THAT CHEST PAIN IS STILL THERE BUT PAIN HAS DECREASED AFTER GIVING MORPHINE. NO SOB NOTED, WILL CONTINUE TO MONITOR
[2018-09-08] MEDS ORDERED: PNEUMOCOCCAL VACCINE 23 MCG/0.5 ML VIAL IMVAC SCH (17:05)
[2018-09-08] MEDS ORDERED: HYDR-5122 PO (17:13)
--- NOTE | 2018-09-08 17:35 | NUR ---
PT WHEELED OUT OF UNIT. IV OFF WITH NO BLEEDING NOTED. PNA VACCINE GIVE. IN NO PAIN OR RESPIRATORY DISTRESS
--- NOTE | 2018-09-09 12:56 | NUR ---
CALLED OFFICE OF DR ACOSTA [phone] SPOKE TO [place], FOLLOW-UP APPOINTMENT MADE ON 09/15/18 @ 4PM [facility] [address] [place] [address] [id number]. CALLED PATIENT PHONE 2X AT [phone] BUT ALWAYS BUSY SIGNAL. CALLED AND SPOKE NEXT OF KIN SISTER JANELL BORGES [phone] AND NOTIFIED HER OF FOLLOW-UP APPOINTMENT DETAILS, SHE SAID SHE WILL RELAY THE INFORMATION TO FRANSISCO SILVER.
--- NOTE | 2018-09-09 13:07 | NUR ---
FAXED CLINICALS TO OFFICE OF DR ACOSTA [phone].
== END 2018-09-08 17:35 | disposition home or self-care (01) | DRG 551 ==
LOC: MED 20:42 → MTU 09-06 01:09 → OBSVTOIN 09-06 15:30
PROVIDERS: ADMIT Internal Medicine Pulmonary Disease; ATTEND Internal Medicine Pulmonary Disease
PROC: 3E0234Z Introduction of Serum, Toxoid and Vaccine into Muscle, Percutaneous Approach (ICD-10-PCS; principal; 2018-09-04)
DX: S13.4XXA Sprain of ligaments of cervical spine, initial encounter (principal); N17.0 Acute kidney failure with tubular necrosis; M62.82 Rhabdomyolysis; V49.9XXA Car occupant (driver) (passenger) injured in unspecified traffic accident, initial encounter; N18.9 Chronic kidney disease, unspecified; I12.9 Hypertensive chronic kidney disease with stage 1 through stage 4 chronic kidney disease, or unspecified chronic kidney disease; E78.5 Hyperlipidemia, unspecified; R00.1 Bradycardia, unspecified; V89.2XXA Person injured in unspecified motor-vehicle accident, traffic, initial encounter; Y92.410 Unspecified street and highway as the place of occurrence of the external cause; Y93.89 Activity, other specified; Y92.89 Other specified places as the place of occurrence of the external cause; Y99.8 Other external cause status; Z88.6 Allergy status to analgesic agent; Z23 Encounter for immunization
CPT/HCPCS: 96374; 96375; 99285; G0378; 36415; 70450; 71045; 72125; 73030; 76770; 80048; 80053; 80305; 81001; 82550; 82553; 83735; 84100; 84443; 84484; 85025; 87081; 90732; 93005; 97116; 97161-GP; 97530; J2270; J2405; J7030; Q0092